=== PATIENT | female | born 1950 | race African-American/Black ===

== ENCOUNTER 2025-04-16 22:17 | Inpatient (IN) | payer OTHER ==
[~2025-04-16] VITALS: Ht 165.1 cm; Wt 85.3 kg
[~2025-04-16 22:17] MED LIST: CARV6.2548 PO; CYCL5TAB3 PO; ISOS30TA91 PO; LOSA25TA26 PO
[2025-04-16] MEDS: HYDROCODONE/ACETAMINOPHEN 5/325MG TABLET PO ONE (23:26)
[2025-04-17] VITALS (61 sets, daily range): BP systolic 76–151; BP diastolic 33–101; PULSE 66–122; RESP 12–33; TEMP 36.4–36.6; O2SAT 69–100
[2025-04-17 00:15] LABS: BASOPHILS % 0.5 % (0.0-2.0); EOSINOPHILS % 1.6 % (0.0-5.0); HEMATOCRIT. 35.3 % (36.0-48.0); HEMOGLOBIN. 11.3 g/dL (12.0-16.0); LYMPHOCYTES % 20.3 % (20.0-50.0); MEAN PLATELET VOLUME 7.4 fl (7.4-10.4); MONOCYTES % 7.3 % (2.0-8.0); NEUTROPHILS % 70.3 % (40.0-76.0); PLATELET 227 x1000/uL (130-400); RED BLOOD CELL COUNT 3.75 mill/uL (4.2-5.4); RED CELL DISTRIBUTION WIDTH 17.4 % (11.6-14.6)
[2025-04-17 00:28] LABS: CREATININE 1.1 mg/dL (0.6-1.0)
[2025-04-17 00:29] LABS: UREA NITROGEN BLOOD 18 mg/dL (9-23)
[2025-04-17 00:30] LABS: ASPARTATE AMINOTRANSFERASE 24 IU/L (<34)
[2025-04-17 00:31] LABS: BILIRUBIN DIRECT 0.2 mg/dL (<=3.0); BILIRUBIN TOTAL 1.0 mg/dL (0.1-1.0); PROTEIN TOTAL 8.2 g/dL (6.0-8.3)
[2025-04-17] MEDS: MORPHINE SULFATE 4 MG/ML INJ (FOR IV/IM USE) IM ONE (01:35)
[2025-04-17] MEDS: ALBUTEROL (0.083%) 2.5MG/3ML NEB HHN ONE (01:51)
[2025-04-17] MEDS: METHYLPREDNISOLONE SOD SUCC 125MG/2ML (ACT-O-VIAL) IV ONE (01:51)
[2025-04-17 01:56] LABS: TROPONIN I HIGH SENSITIVITY 8 ng/L (3.0-34)
[2025-04-17] MEDS ORDERED: HYDRALAZINE 20MG/ML VIAL IV ONE (02:45)
[2025-04-17] MEDS: HYDRALAZINE 20MG/ML VIAL IV ONE (05:53)
[2025-04-17] MEDS: HYDRALAZINE 20MG/ML VIAL IV SCH (06:00)
[2025-04-17] MEDS ORDERED: HYDROCODONE/ACETAMINOPHEN 5/325MG TABLET PO PRN (06:45)
[2025-04-17] MEDS ORDERED: DOCUSATE SODIUM 100MG CAPSULE PO PRN (06:45)
[2025-04-17] MEDS ORDERED: MAGNESIUM/ALUMINUM HYDROXIDE/SIMETHICONE 30ML UDC PO PRN (06:45)
[2025-04-17] MEDS ORDERED: ACETAMINOPHEN 325MG TABLET PO PRN (06:45)
[2025-04-17] MEDS ORDERED: NALOXONE HCL 0.4MG/ML VIAL IV PRN (07:00)
[2025-04-17] MEDS: CLONIDINE 0.1MG TABLET PO PRN (08:27)
[2025-04-17] MEDS: ONDANSETRON HCL 4MG/2ML INJ IV PRN (08:27)
[2025-04-17] MEDS: MORPHINE SULFATE 2 MG/ML INJ (NOT FOR IM USE) IV PRN (08:27)
[2025-04-17] MEDS ORDERED: NICARDIPINE 50 MG in SODIUM CHLORIDE 0.9% 230 ML IV PRN (08:30)
[2025-04-17] MEDS: NICARDIPINE 40 MG/200 ML PREMIX 200 ML IV PRN (09:24)
[2025-04-17] MEDS: LIDOCAINE HCL 1% 10 MG/ML 10ML VIAL ONE (09:31)
[2025-04-17 11:40] LABS: CLARITY URINE CLEAR (CLEAR); COLOR URINE YELLOW (YELLOW); GLUCOSE URINE NEGATIVE (NEGATIVE); KETONES URINE NEGATIVE (NEGATIVE); LEUKOCYTE ESTERASE URINE NEGATIVE (NEGATIVE); NITRITE URINE NEGATIVE (NEGATIVE); OCCULT BLOOD URINE NEGATIVE (NEGATIVE); PH URINE >=9.0 (4.5-8.0); PROTEIN URINE 3+ (NEGATIVE); SPECIFIC GRAVITY URINE 1.015 (1.005-1.030); UROBILINOGEN URINE 0.2 E.U./dL (0.2-1.0)
[2025-04-17 11:53] LABS: BACTERIA URINE 1+; RBC URINE 0-2 /hpf (0-2); SQUAMOUS EPITHELIAL CELL URINE 1+ /lpf (RARE/1+); WBC URINE 0-2 /hpf (0-2); YEAST URINE NONE SEEN
[2025-04-17] MEDS: ESMOLOL 2500MG PREMIX 250 ML IV PRN (11:56)
[2025-04-17 12:07] LABS: *AMPHETAMINES SCREEN URINE NEGATIVE (NEGATIVE); *BARBITURATES SCREEN URINE NEGATIVE (NEGATIVE); *BENZODIAZEPINES SCREEN URINE NEGATIVE (NEGATIVE); *COCAINE SCREEN URINE NEGATIVE (NEGATIVE); CANNABINOID URINE SCREEN NEGATIVE (NEGATIVE); METHADONE URINE SCREEN NEGATIVE (NEGATIVE); OPIATES URINE SCREEN PRESUMPTIVE POSITIVE (NEGATIVE); PHENCYCLIDINE URINE SCREEN NEGATIVE (NEGATIVE)
[2025-04-17 12:08] LABS: ECSTASY MDMA SCREEN URINE NEGATIVE (NEGATIVE)
[2025-04-17 14:48] LABS: HEMATOCRIT. 32.2 % (36.0-48.0); HEMOGLOBIN. 10.6 g/dL (12.0-16.0); MEAN PLATELET VOLUME 7.2 fl (7.4-10.4); PLATELET 243 x1000/uL (130-400); RED BLOOD CELL COUNT 3.51 mill/uL (4.2-5.4); RED CELL DISTRIBUTION WIDTH 16.9 % (11.6-14.6)
[2025-04-17 14:57] LABS: CREATININE 0.8 mg/dL (0.6-1.0); UREA NITROGEN BLOOD 15 mg/dL (9-23)
[2025-04-17 14:58] LABS: CREATINE KINASE MB FRACTION 5.0 ng/mL (0.5-3.6)
[2025-04-17] MEDS ORDERED: IOHEXOL-350 100 ML BOTTLE ONE (15:03)
[2025-04-17 15:05] LABS: LYMPHOCYTES % MANUAL 7.0 % (20.0-60.0); MONOCYTES % MANUAL 5.0 % (2.0-8.0); NEUTROPHILS % MANUAL 88.0 % (45.0-75.0); PLATELET ESTIMATE NORMAL
[2025-04-17 15:06] LABS: TROPONIN I HIGH SENSITIVITY 262 ng/L (3.0-34)
[2025-04-17] MEDS: LIDOCAINE 5% PATCH TOP SCH (16:39)
[2025-04-17 23:45] LABS: CREATINE KINASE MB FRACTION 4.7 ng/mL (0.5-3.6)
[2025-04-18] VITALS (84 sets, daily range): BP systolic 80–153; BP diastolic 40–89; PULSE 54–77; RESP 11–34; TEMP 36.3–36.9; O2SAT 70–100
[2025-04-18 00:29] LABS: TROPONIN I HIGH SENSITIVITY 543.0 ng/L (3.0-34)
[2025-04-18 06:26] LABS: HEMATOCRIT. 30.6 % (36.0-48.0); HEMOGLOBIN. 10.3 g/dL (12.0-16.0); MEAN PLATELET VOLUME 7.4 fl (7.4-10.4); PLATELET 203 x1000/uL (130-400); RED BLOOD CELL COUNT 3.35 mill/uL (4.2-5.4); RED CELL DISTRIBUTION WIDTH 17.1 % (11.6-14.6)
[2025-04-18 06:53] LABS: CREATININE 1.1 mg/dL (0.6-1.0); TRIGLYCERIDE 68 mg/dL (0-150); UREA NITROGEN BLOOD 20 mg/dL (9-23)
[2025-04-18 06:54] LABS: ASPARTATE AMINOTRANSFERASE 23 IU/L (<34); LDL CHOLESTEROL 81 mg/dL (5-100)
[2025-04-18 06:55] LABS: BILIRUBIN TOTAL 1.6 mg/dL (0.1-1.0); PROTEIN TOTAL 6.8 g/dL (6.0-8.3)
[2025-04-18 10:21] LABS: BAND% 4.0 % (1.0-6.0); LYMPHOCYTES % MANUAL 3.0 % (20.0-60.0); MONOCYTES % MANUAL 8.0 % (2.0-8.0); NEUTROPHILS % MANUAL 85.0 % (45.0-75.0)
[2025-04-18 10:22] LABS: PLATELET ESTIMATE NORMAL
[2025-04-18 11:53] LABS: INR 1.0
[2025-04-18] MEDS ORDERED: POLYMYXIN B SULFATE 500000 UNITS/VIAL ONE (12:16)
[2025-04-18] MEDS ORDERED: HEPARIN SODIUM 1,000 UNIT/1ML VIAL IV ONE (12:17)
[2025-04-18] MEDS ORDERED: BACITRACIN 14GM TUBE TOP ONE (12:17)
[2025-04-18] MEDS ORDERED: THROMBIN (BOVINE) 5000 UNITS/VIAL TOP ONE ×2 (12:17)
[2025-04-18] MEDS ORDERED: LIDOCAINE HCL 1% 20ML VIAL ONE (12:18)
[2025-04-18] MEDS ORDERED: BUPIVACAINE HCL/PF 0.5% (5MG/ML) 10ML ONE (12:18)
[2025-04-18] MEDS ORDERED: PROPOFOL 200MG/20ML VIAL IV ONE ×2 (14:14→15:53)
[2025-04-18] MEDS ORDERED: FENTANYL CITRATE/PF 50MCG/ML 2ML VIAL ONE ×2 (14:14→17:01)
[2025-04-18] MEDS ORDERED: IODIXANOL 320 MG/ML 150ML BOTTLE IV ONE (14:16)
[2025-04-18] MEDS ORDERED: ROCURONIUM BROMIDE 10MG/ML VIAL 5ML IV ONE ×3 (14:20→16:45)
[2025-04-18] MEDS ORDERED: PHENYLEPHRINE HCL 10MG/ML 1ML IV ONE (14:21)
[2025-04-18] MEDS ORDERED: EPHEDRINE SULFATE 50MG/ML VIAL ONE (14:39)
[2025-04-18] MEDS ORDERED: ONDANSETRON HCL 4MG/2ML INJ ONE (15:12)
[2025-04-18] MEDS ORDERED: HYDRALAZINE 20MG/ML VIAL ONE (15:24)
[2025-04-18] MEDS ORDERED: HEPARIN 1000 UNITS/ML 10ML ONE (15:31)
[2025-04-18] MEDS ORDERED: CEFAZOLIN SODIUM 1000MG/VIAL ONE (15:31)
[2025-04-18] MEDS ORDERED: ACETAMINOPHEN 1000MG/100ML 100 ML IV ONE (15:36)
[2025-04-18] MEDS ORDERED: ALBUMIN HUMAN 12.5G/250ML (5%) IV ONE (17:21)
[2025-04-18] MEDS ORDERED: NICARDIPINE 40MG/200ML PREMIX 200 ML IV ONE (17:22)
[2025-04-18 17:34] LABS: PLATELET 136 x1000/uL (130-400); RED BLOOD CELL COUNT 2.21 mill/uL (4.2-5.4); RED CELL DISTRIBUTION WIDTH 16.6 % (11.6-14.6)
[2025-04-18] MEDS ORDERED: HYDROMORPHONE HCL/PF 1MG/ML INJ ONE (17:35)
[2025-04-18] MEDS ORDERED: PROTAMINE SULFATE 10MG/ML VIAL 5ML IV ONE (17:41)
[2025-04-18] MEDS ORDERED: NITROGLYCERIN 50MG PREMIX 250 ML IV ONE (18:17)
[2025-04-18] MEDS: HYDROMORPHONE HCL/PF 1MG/ML INJ IV NR (18:44)
[2025-04-18] MEDS: DEXMEDETOMIDINE 100 ML IV PRN (18:45)
[2025-04-18 20:41] LABS: HEMATOCRIT. 40.2 % (36.0-48.0); HEMOGLOBIN. 13.1 g/dL (12.0-16.0); MEAN PLATELET VOLUME 7.4 fl (7.4-10.4); PLATELET 135 x1000/uL (130-400); RED BLOOD CELL COUNT 4.31 mill/uL (4.2-5.4); RED CELL DISTRIBUTION WIDTH 15.9 % (11.6-14.6)
[2025-04-18 20:56] LABS: LYMPHOCYTES % MANUAL 9.0 % (20.0-60.0); MONOCYTES % MANUAL 10.0 % (2.0-8.0); NEUTROPHILS % MANUAL 81.0 % (45.0-75.0)
[2025-04-18 20:58] LABS: PLATELET ESTIMATE SLIGHTLY DECREASED
[2025-04-18] MEDS ORDERED: IOHEXOL-350 100 ML BOTTLE ONE (21:34)
[2025-04-19] VITALS (91 sets, daily range): BP systolic 73–158; BP diastolic 35–107; PULSE 55–80; RESP 12–33; TEMP 36.1–36.9; O2SAT 79–100
[2025-04-19 06:18] LABS: CREATININE 1.0 mg/dL (0.6-1.0); UREA NITROGEN BLOOD 17 mg/dL (9-23)
[2025-04-19 06:20] LABS: ASPARTATE AMINOTRANSFERASE 34 IU/L (<34); BILIRUBIN TOTAL 2.3 mg/dL (0.1-1.0); PROTEIN TOTAL 6.5 g/dL (6.0-8.3)
[2025-04-19 06:22] LABS: HEMATOCRIT. 35.1 % (36.0-48.0); HEMOGLOBIN. 11.6 g/dL (12.0-16.0); MEAN PLATELET VOLUME 8.3 fl (7.4-10.4); PLATELET 121 x1000/uL (130-400); RED BLOOD CELL COUNT 3.79 mill/uL (4.2-5.4); RED CELL DISTRIBUTION WIDTH 16.2 % (11.6-14.6)
[2025-04-19] MEDS ORDERED: IODIXANOL 320 MG/ML 150ML BOTTLE IV ONE (07:36)
[2025-04-19] MEDS ORDERED: HEPARIN 1000 UNITS/ML 10ML ONE (07:36)
[2025-04-19] MEDS ORDERED: LIDOCAINE HCL 1% 20ML VIAL ONE (07:36)
[2025-04-19] MEDS ORDERED: ALTEPLASE 4 MG in SODIUM CHLORIDE 0.9% 100 ML IV ONE (07:45)
[2025-04-19] MEDS ORDERED: ALTEPLASE 2MG/VIAL ITC NR (08:00)
[2025-04-19] MEDS ORDERED: FENTANYL CITRATE/PF 50MCG/ML 2ML VIAL ONE (08:08)
[2025-04-19] MEDS ORDERED: MIDAZOLAM HCL 2 MG/2 ML VIAL ONE (08:09)
[2025-04-19] MEDS ORDERED: NICARDIPINE 40MG/200ML PREMIX 200 ML IV ONE (08:19)
[2025-04-19] MEDS ORDERED: DIPHENHYDRAMINE 50MG/ML VIAL ONE (08:34)
[2025-04-19 09:18] LABS: BAND% 8.0 % (1.0-6.0); LYMPHOCYTES % MANUAL 7.0 % (20.0-60.0); MONOCYTES % MANUAL 5.0 % (2.0-8.0); NEUTROPHILS % MANUAL 80.0 % (45.0-75.0); PLATELET ESTIMATE SLIGHTLY DECREASED
[2025-04-19] MEDS: MORPHINE SULFATE 4 MG/ML INJ (FOR IV/IM USE) IV PRN (14:39)
[2025-04-20] VITALS (96 sets, daily range): BP systolic 91–159; BP diastolic 41–139; PULSE 57–78; RESP 10–33; TEMP 36.9–37.1; O2SAT 96–100
[2025-04-20 04:40] LABS: PLATELET 113 x1000/uL (130-400); RED BLOOD CELL COUNT 3.48 mill/uL (4.2-5.4); RED CELL DISTRIBUTION WIDTH 16.2 % (11.6-14.6)
[2025-04-20 04:58] LABS: CREATININE 1.1 mg/dL (0.6-1.0)
[2025-04-20 04:59] LABS: UREA NITROGEN BLOOD 19.0 mg/dL (9-23)
[2025-04-20] MEDS: NITROGLYCERIN 50MG PREMIX 250 ML IV PRN (09:37)
[2025-04-20] MEDS: IPRATROPIUM/ALBUTEROL 0.5-3(2.5)MG/3ML NEB HHN PRN (09:49)
[2025-04-20] MEDS: FAMOTIDINE 20MG/2ML VIAL IV SCH (12:05)
[2025-04-20] MEDS: ENOXAPARIN 80MG/0.8ML SYR SUBCUT SCH (12:54)
[2025-04-21] VITALS (101 sets, daily range): BP systolic 56–157; BP diastolic 25–124; PULSE 55–84; RESP 12–32; TEMP 36.6–37.2; O2SAT 93–100
[2025-04-21 06:43] LABS: HEMATOCRIT. 30.7 % (36.0-48.0); HEMOGLOBIN. 10.4 g/dL (12.0-16.0); MEAN PLATELET VOLUME 8.0 fl (7.4-10.4); PLATELET 126 x1000/uL (130-400); RED BLOOD CELL COUNT 3.37 mill/uL (4.2-5.4); RED CELL DISTRIBUTION WIDTH 15.6 % (11.6-14.6)
[2025-04-21 06:50] LABS: INR 1.0
[2025-04-21 06:53] LABS: UREA NITROGEN BLOOD 22 mg/dL (9-23)
[2025-04-21 06:55] LABS: CREATININE 1.0 mg/dL (0.6-1.0)
[2025-04-21 06:57] LABS: ASPARTATE AMINOTRANSFERASE 137 IU/L (<34); BILIRUBIN DIRECT 0.3 mg/dL (<=3.0); BILIRUBIN TOTAL 0.9 mg/dL (0.1-1.0); PHOSPHORUS 3.0 mg/dL (2.5-4.9); PROTEIN TOTAL 6.2 g/dL (6.0-8.3)
[2025-04-21] MEDS: LORAZEPAM 2MG/ML UD SYRINGE IV SCH (10:38)
[2025-04-21 11:25] LABS: BAND% 7.0 % (1.0-6.0); LYMPHOCYTES % MANUAL 6.0 % (20.0-60.0); MONOCYTES % MANUAL 8.0 % (2.0-8.0); NEUTROPHILS % MANUAL 79.0 % (45.0-75.0); PLATELET ESTIMATE SLIGHTLY DECREASED
[2025-04-21] MEDS: METHYLPREDNISOLONE SOD SUCC 40MG/ML (ACT-O-VIAL) IV NR (13:56)
[2025-04-21 14:02] LABS: BG BASE EXCESS -10.8 mmol/L (-2.0-3.0); BG CARBOXYHEMOGLOBIN 0.9 % (0.5-1.5); BG DEOXYHEMOGLOBIN 10.1 % (0.0-5.0); BG FLOW(L/min) 3.00 L/min; BG FRACTION INSPIRED OXYGEN 32; BG HCO3 ACT 17.3 mmol/L (21.0-28.0); BG METHEMOGLOBIN 0.2 % (0.5-1.5); BG OXYGEN SATURATION 89.8 % (94.0-98.0); BG OXYHEMOGLOBIN 88.8 % (94.0-98.0); BG PCO2 47.6 mmHg (32.0-45.0); BG PH 7.178 (7.350-7.450); BG PO2 66.9 mmHg (83.0-108.0); BG SAMPLE SITE RIGHT BRACHIAL; BG TOTAL HEMOGLOBIN 11.7 g/dL (12.0-16.0); BG VENT MODE NASAL CANNULA
[2025-04-21] MEDS: SODIUM BICARBONATE 8.4% 50MEQ/50ML SYR IV SCH (14:45)
[2025-04-22] VITALS (101 sets, daily range): BP systolic 91–149; BP diastolic 47–95; PULSE 65–80; RESP 10–29; TEMP 36.3–37; O2SAT 81–100
[2025-04-22] MEDS: ESMOLOL 2500MG PREMIX 250 ML IV PRN ×2 (00:33→10:04)
[2025-04-22] MEDS: IPRATROPIUM/ALBUTEROL 0.5-3(2.5)MG/3ML NEB HHN SCH (00:35)
[2025-04-22 06:35] LABS: PLATELET 107 x1000/uL (130-400); RED BLOOD CELL COUNT 2.80 mill/uL (4.2-5.4); RED CELL DISTRIBUTION WIDTH 15.4 % (11.6-14.6)
[2025-04-22 06:51] LABS: CREATININE 1.0 mg/dL (0.6-1.0)
[2025-04-22 06:54] LABS: UREA NITROGEN BLOOD 21 mg/dL (9-23)
[2025-04-22 06:55] LABS: PHOSPHORUS 2.5 mg/dL (2.5-4.9)
[2025-04-22] MEDS: DEXMEDETOMIDINE 250 ML IV PRN (18:50)
[2025-04-22 20:19] LABS: PLATELET 115 x1000/uL (130-400); RED BLOOD CELL COUNT 3.04 mill/uL (4.2-5.4); RED CELL DISTRIBUTION WIDTH 15.5 % (11.6-14.6)
[2025-04-23] VITALS (91 sets, daily range): BP systolic 84–154; BP diastolic 40–136; PULSE 60–78; RESP 10–27; TEMP 36.3–36.8; O2SAT 92–100
[2025-04-23 06:01] LABS: HEMATOCRIT. 25.0 % (36.0-48.0); HEMOGLOBIN. 8.2 g/dL (12.0-16.0); MEAN PLATELET VOLUME 7.8 fl (7.4-10.4); PLATELET 117 x1000/uL (130-400); RED BLOOD CELL COUNT 2.73 mill/uL (4.2-5.4); RED CELL DISTRIBUTION WIDTH 15.8 % (11.6-14.6)
[2025-04-23 06:25] LABS: CREATININE 0.8 mg/dL (0.6-1.0); UREA NITROGEN BLOOD 17 mg/dL (9-23)
[2025-04-23 09:09] LABS: BAND% 7.0 % (1.0-6.0); LYMPHOCYTES % MANUAL 8.0 % (20.0-60.0); MONOCYTES % MANUAL 8.0 % (2.0-8.0); NEUTROPHILS % MANUAL 77.0 % (45.0-75.0); PLATELET ESTIMATE SLIGHTLY DECREASED
[2025-04-23 13:14] LABS: BG BASE EXCESS -3.0 mmol/L (-2.0-3.0); BG CARBOXYHEMOGLOBIN 0.7 % (0.5-1.5); BG DEOXYHEMOGLOBIN 6.0 % (0.0-5.0); BG FLOW(L/min) 3.00 L/min; BG FRACTION INSPIRED OXYGEN 32; BG HCO3 ACT 22.3 mmol/L (21.0-28.0); BG METHEMOGLOBIN 0.5 % (0.5-1.5); BG OXYGEN SATURATION 93.9 % (94.0-98.0); BG OXYHEMOGLOBIN 92.8 % (94.0-98.0); BG PCO2 40.8 mmHg (32.0-45.0); BG PH 7.355 (7.350-7.450); BG PO2 70.8 mmHg (83.0-108.0); BG SAMPLE SITE RIGHT BRACHIAL; BG TOTAL HEMOGLOBIN 9.0 g/dL (12.0-16.0); BG VENT MODE NASAL CANNULA
[2025-04-23] MEDS: NS IV PRN (19:45)
[2025-04-23] MEDS: ESMOLOL IV PRN (19:45)
[2025-04-24] VITALS (97 sets, daily range): BP systolic 75–202; BP diastolic 25–190; PULSE 63–77; RESP 11–34; TEMP 36.4–37; O2SAT 86–100
[2025-04-24 05:30] LABS: HEMATOCRIT. 23.7 % (36.0-48.0); HEMOGLOBIN. 8.1 g/dL (12.0-16.0); MEAN PLATELET VOLUME 7.7 fl (7.4-10.4); PLATELET 135 x1000/uL (130-400); RED BLOOD CELL COUNT 2.60 mill/uL (4.2-5.4); RED CELL DISTRIBUTION WIDTH 15.7 % (11.6-14.6)
[2025-04-24 05:52] LABS: CREATININE 0.7 mg/dL (0.6-1.0)
[2025-04-24 05:53] LABS: UREA NITROGEN BLOOD 13 mg/dL (9-23)
[2025-04-24] MEDS ORDERED: GUAIFENESIN/DM 600MG/30MG ER TAB 12HR PO PRN (12:15)
[2025-04-24 12:23] LABS: BAND% 12.0 % (1.0-6.0); LYMPHOCYTES % MANUAL 1.0 % (20.0-60.0); MONOCYTES % MANUAL 6.0 % (2.0-8.0); NEUTROPHILS % MANUAL 81.0 % (45.0-75.0)
[2025-04-24 12:24] LABS: PLATELET ESTIMATE NORMAL
[2025-04-25] VITALS (97 sets, daily range): BP systolic 46–178; BP diastolic 21–151; PULSE 63–81; RESP 11–31; TEMP 36–36.7; O2SAT 90–100
[2025-04-25 06:08] LABS: HEMATOCRIT. 26.9 % (36.0-48.0); HEMOGLOBIN. 8.9 g/dL (12.0-16.0); MEAN PLATELET VOLUME 7.2 fl (7.4-10.4); PLATELET 204 x1000/uL (130-400); RED BLOOD CELL COUNT 2.93 mill/uL (4.2-5.4); RED CELL DISTRIBUTION WIDTH 15.8 % (11.6-14.6)
[2025-04-25 06:28] LABS: CREATININE 0.6 mg/dL (0.6-1.0); UREA NITROGEN BLOOD 14 mg/dL (9-23)
[2025-04-25 10:27] LABS: BAND% 9.0 % (1.0-6.0); LYMPHOCYTES % MANUAL 4.0 % (20.0-60.0); MONOCYTES % MANUAL 7.0 % (2.0-8.0); NEUTROPHILS % MANUAL 80.0 % (45.0-75.0); PLATELET ESTIMATE NORMAL
[2025-04-25] MEDS: METHYLPREDNISOLONE SOD SUCC 125MG/2ML (ACT-O-VIAL) IV NR (13:35)
[2025-04-25] MEDS: CARVEDILOL 12.5MG TABLET NG SCH (14:31)
[2025-04-25] MEDS: ACETYLCYSTEINE 200MG/ML 20% VIAL 4ML INH SCH (17:04)
[2025-04-25] MEDS: PIPERACILLIN/TAZO 3.375G/50ML 50 ML IV NR (17:20)
[2025-04-25] MEDS: VANCOMYCIN 1.75GM PMX (XELLIA) 350 ML IV NR (17:37)
[2025-04-25] MEDS ORDERED: PIPERACILLIN/TAZO 3.375G/50ML 50 ML IV SCH (22:00)
[2025-04-25] MEDS: NICARDIPINE 50 MG in SODIUM CHLORIDE 0.9% 250 ML IV PRN (22:00)
[2025-04-25] MEDS: ENOXAPARIN 80MG/0.8ML SYR SUBCUT SCH (22:20)
[2025-04-25] MEDS: ACETAMINOPHEN 325MG TABLET PO PRN (23:00)
[2025-04-26] MEDS ORDERED: VANCOMYCIN 1GM PMX (XELLIA) 200 ML IV SCH (16:00)
== END 2025-04-26 | disposition short-term general hospital (02) | DRG 278 ==
LOC: ER 22:17 → MICUSO 04-17 06:16 → EDBEDREQ 04-17 06:21 → EDBEDREQTM 04-17 06:21 → EDBEDREQSVC 04-17 06:21 → ENRESERV 04-17 08:59
PROVIDERS: ADMIT Internal Medicine; ATTEND Internal Medicine
PROC: B5181ZA Fluoroscopy of Superior Vena Cava using Low Osmolar Contrast, Guidance (ICD-10-PCS; 2025-04-17)
PROC: 02HV33Z Insertion of Infusion Device into Superior Vena Cava, Percutaneous Approach (ICD-10-PCS; 2025-04-17)
PROC: B548ZZA Ultrasonography of Superior Vena Cava, Guidance (ICD-10-PCS; 2025-04-17)
PROC: 04FD3ZZ Fragmentation of Left Common Iliac Artery, Percutaneous Approach (ICD-10-PCS; principal; 2025-04-18)
PROC: 04FJ3ZZ Fragmentation of Left External Iliac Artery, Percutaneous Approach (ICD-10-PCS; 2025-04-18)
PROC: 047D3EZ Dilation of Left Common Iliac Artery with Two Intraluminal Devices, Percutaneous Approach (ICD-10-PCS; 2025-04-18)
PROC: 047J3EZ Dilation of Left External Iliac Artery with Two Intraluminal Devices, Percutaneous Approach (ICD-10-PCS; 2025-04-18)
PROC: B340ZZ3 Ultrasonography of Thoracic Aorta, Intravascular (ICD-10-PCS; 2025-04-18)
PROC: B41C1ZZ Fluoroscopy of Pelvic Arteries using Low Osmolar Contrast (ICD-10-PCS; 2025-04-19)
DX: I71.012 Dissection of descending thoracic aorta (principal); I50.23 Acute on chronic systolic (congestive) heart failure; J96.22 Acute and chronic respiratory failure with hypercapnia; J96.21 Acute and chronic respiratory failure with hypoxia; I31.39 Other pericardial effusion (noninflammatory); N17.9 Acute kidney failure, unspecified; I74.5 Embolism and thrombosis of iliac artery; I11.0 Hypertensive heart disease with heart failure; D64.9 Anemia, unspecified; J44.9 Chronic obstructive pulmonary disease, unspecified; I70.201 Unspecified atherosclerosis of native arteries of extremities, right leg; I25.10 Atherosclerotic heart disease of native coronary artery without angina pectoris; R80.9 Proteinuria, unspecified; Z88.8 Allergy status to other drugs, medicaments and biological substances; E66.9 Obesity, unspecified; D72.829 Elevated white blood cell count, unspecified; I70.8 Atherosclerosis of other arteries; Z99.81 Dependence on supplemental oxygen; Z68.31 Body mass index [BMI] 31.0-31.9, adult
CPT/HCPCS: 36415; 36573; 36600; 37221; 37252; 71045; 71275; 73706; 74174; 75605; 75630; 80048; 80053; 80061; 80076; 80305; 81003; 82375; 82550; 82553; 82805; 82962; 83605; 83735; 83880; 84100; 84145; 84443; 84484; 85014; 85018; 85025; 85027; 85347; 86850; 86900; 86920; 93005; 93308; 93922; 94070; 94640; 94664; 99291; A4606; A4657; C1725; C1726; C1753; C1769; C1874; C1893; J0360; J0665; J0690; J1171; J1200; J1308; J1644; J1650; J2003; J2060; J2250; J2270; J2371; J2405; J2543; J2704; J2720; J2919; J2997; J3010; J3373; J3490; J7050; J7608; P9016; P9041; Q9967; C1761; J0131